=== PATIENT | male | born 1960 | race African-American/Black ===

== ENCOUNTER → 2017-05-05 | Outpatient (CLI) | payer MEDICARE, MEDICAID ==
[2017-05-05 10:59] LABS: ALANINE AMINOTRANSFERASE 90 U/L (21-72); ALBUMIN 4.4 g/dL (3.5-5.0); ALKALINE PHOSPHATASE 93 U/L (38-126); ASPARTATE AMINO TRANSFERASE 48 U/L (17-59); BILIRUBIN,DIRECT 0.3 mg/dL (0.0-0.4); BILIRUBIN,TOTAL 0.5 mg/dL (0.2-1.3); TOTAL PROTEIN 7.8 g/dL (6.3-8.2)
[2017-05-05 11:30] LABS: PROSTATE SPECIFIC ANTIGEN < 0.064 ng/mL (<4.00)
== END ==
LOC: OD 10:00
PROVIDERS: ATTEND Radiology Radiation Oncology
DX: C61 Malignant neoplasm of prostate (principal); R97.20 Elevated prostate specific antigen [PSA]; Z79.899 Other long term (current) drug therapy
CPT/HCPCS: 36415; 80076; 84153

== ENCOUNTER → 2017-09-01 | Outpatient (CLI) | payer MEDICARE, MEDICAID | LOC: OD 11:13 | PROVIDERS: ATTEND Radiology Radiation Oncology | DX: C61 Malignant neoplasm of prostate (principal); R97.20 Elevated prostate specific antigen [PSA]; Z79.899 Other long term (current) drug therapy | CPT/HCPCS: 36415; 84153 ==

== ENCOUNTER → 2017-11-23 | Outpatient (CLI) | payer MEDICARE, MEDICAID ==
[2017-11-23 12:05] LABS: APPEARANCE,URINE SLIGHTLY-CLOUDY; BILIRUBIN,URINE NEGATIVE (NEGATIVE); COLOR,URINE YELLOW; GLUCOSE, URINE NEGATIVE (NEGATIVE); KETONES,URINE NEGATIVE (NEGATIVE); LEUKOCYTE ESTERASE,URINE TRACE (NEGATIVE); NITRITE,URINE NEGATIVE (NEGATIVE); PROTEIN,URINE >=500 mg/dL (NEGATIVE); URINE SPECIFIC GRAVITY 1.031; UROBILINOGEN,URINE NEGATIVE mg/dL (<2.0)
[2017-11-23 12:09] LABS: ABSOLUTE EOSINOPHILS # (AUTO) 0.1 10^3/uL (0.0-0.6); ABSOLUTE LYMPHOCYTES (AUTO) 1.4 10^3/uL (0.5-4.7); ABSOLUTE MONOCYTES (AUTO) 0.6 10^3/uL (0.1-1.4); ABSOLUTE NEUT (AUTO) 2.5 10^3/uL (1.7-8.2); BASOPHILS % (AUTO) 0.9 % (0-2); EOSINOPHILS % (AUTO) 2.7 % (0-6); HEMATOCRIT 43.6 % (37.9-51.0); HEMOGLOBIN 14.5 g/dL (13.5-17.0); LYMPHOCYTES % (AUTO) 29.7 % (13-45); MEAN CORPUSCULAR HEMOGLOBIN 29.2 pg (27.0-33.4); MEAN CORPUSCULAR HGB CONC 33.3 g/dL (32.0-36.0); MEAN CORPUSCULAR VOLUME 88 fl (80-97); MONOCYTES % (AUTO) 12.9 % (3-13); PLATELET COUNT 235 10^3/uL (150-450); RED BLOOD COUNT 4.98 10^6/uL (4.35-5.55); RED CELL DISTRIBUTION WIDTH 14.2 % (11.5-14.0); SEGMENTED NEUTROPHILS % (AUTO) 53.8 % (42-78); TOTAL CELLS COUNTED % (AUTO) 100 %; WHITE BLOOD COUNT 4.6 10^3/uL (4.0-10.5)
[2017-11-23 12:25] LABS: ANION GAP 10 (5-19); BLOOD UREA NITROGEN 16 mg/dL (7-20); CALCIUM 10.6 mg/dL (8.4-10.2); CARBON DIOXIDE 33 mmol/L (22-30); CHLORIDE 101 mmol/L (98-107); GLUCOSE 96 mg/dL (75-110); POTASSIUM 4.5 mmol/L (3.6-5.0); SODIUM 144.4 mmol/L (137-145)
--- NOTE | 2017-11-23 12:33 | RADIOLOGY REPORT (SQ) ---
EXAM DESCRIPTION: CHEST PA/LATERAL COMPLETED DATE/TIME: 11/23/2017 12:05 pm REASON FOR STUDY: PRE OP COMPARISON: None. TECHNIQUE: Frontal and lateral radiographic views of the chest acquired. NUMBER OF VIEWS: Two view. LIMITATIONS: None. FINDINGS: LUNGS AND PLEURA: Minimal blunting left lateral costophrenic angle, likely scar or epicard ial fat. No suggestion of failure. No suspicious or acute infiltrates. MEDIASTINUM AND HILAR STRUCTURES: No masses or contour abnormalities. HEART AND VASCULAR STRUCTURES: Heart normal size. No evidence for failure. BONES: No acute findings. HARDWARE: None in the chest. OTHER: No other significant finding. IMPRESSION: No acute cardiopulmonary disease evident. TECHNICAL DOCUMENTATION: JOB ID: [id number] [employer]- All Rights Reserved
--- NOTE | 2017-11-24 08:00 | EKG REPORT ---
SEVERITY:- NORMAL ECG - SINUS RHYTHM : Confirmed by: Ceci Verdugo MD 24-Nov-2017 07:58:32
== END ==
LOC: OD 11:08
PROVIDERS: ATTEND Orthopaedic Surgery
DX: Z01.810 Encounter for preprocedural cardiovascular examination (principal); Z01.812 Encounter for preprocedural laboratory examination; Z01.818 Encounter for other preprocedural examination; E11.9 Type 2 diabetes mellitus without complications
CPT/HCPCS: 36415; 71020; 80048; 81001; 83036; 85025; 93005; 93010

== ENCOUNTER 2017-12-19 09:05 | Inpatient (IN) | payer MEDICARE, MEDICAID ==
[~2017-12-19 09:05] MED LIST: BUPIVACAINE INJ/PF LIPOSOME/PF 266 MG/20 ML SDV IJ PRN; BUPIVACAINE INJ/PF LIPOSOME/PF 266 MG/20 ML SDV ONE; CEFAZOLIN INJ 1 GM VIAL IV PRN; IBUPROFEN 800 MG in NORMAL SALINE 250 ML IV PRN; LACTATED RINGERS 1000 ML IV PRN; LANSOPRAZOLE 15 MG TAB.RAP.DR PO PRN; LIDOCAINE 0.5% INJ-PF (5 MG/ML) 50 ML SDV SUBCUT PRN; OXYCODONE HCL SR 10 MG TABLET PO PRN; THROMBIN (BOVINE) 5000 UNIT EPITAXIS KIT ONE; THROMBIN (BOVINE) TOPICAL 20000 UNIT VIAL ONE; VANCOMYCIN HCL 1,000 MG in DEXTROSE 5%-WATER 250 ML IV PRN
[2017-12-19] MEDS ORDERED: FENTANYL CITRATE INJ/PF 100 MCG/2 ML AMPUL ONE (10:11)
[2017-12-19] MEDS ORDERED: MIDAZOLAM 2 MG/2 ML INJ ONE (10:11)
[2017-12-19] MEDS ORDERED: EPHEDRINE SULFATE INJ 50 MG/1 ML AMPULE ONE (10:12)
[2017-12-19] MEDS ORDERED: PROPOFOL INJ 200 MG/20 ML VIAL IV ONE (10:12)
[2017-12-19] MEDS ORDERED: TRANEXAMIC ACID INJ/PF 1,000 MG/10 ML SDV IV ONE (10:12)
[2017-12-19] MEDS ORDERED: THROMBIN (BOVINE) TOPICAL 20000 UNIT VIAL TP ONE (11:14)
[2017-12-19] MEDS ORDERED: THROMBIN (BOVINE) 5000 UNIT EPITAXIS KIT TP ONE (11:14)
[2017-12-19] MEDS ORDERED: DIPHENHYDRAMINE HCL 50 MG/ML VIAL IV PRN ×2 (11:33→12:13)
[2017-12-19] MEDS ORDERED: FENTANYL CITRATE INJ/PF 100 MCG/2 ML AMPUL IV PRN ×3 (11:33)
[2017-12-19] MEDS ORDERED: PROMETHAZINE HCL INJ 25 MG/1 ML VIAL IV PRN (11:33)
--- NOTE | 2017-12-19 11:55 | Operative Report ---
Operative Report DATE OF SURGERY: 12/19/17 PREOPERATIVE DIAGNOSIS: Avascular necrosis right hip OPERATION: Right hip arthroplasty SURGEON: NICHOLE VARELA 1ST FIELD REPORTER: ARMIN LINARES ANESTHESIA: Spinal TISSUE REMOVED OR ALTERED: Bone to pathology ESTIMATED BLOOD LOSS: 100 PROCEDURE: Implants used: Femur: Lin Accolade 2 size 4 stem Acetabular shell: 54 mm hemispherical shell Liner: 36 mm flat cross-link polyethylene liner Head: 36 mm chrome cobalt head -5 neck The patient is placed in a left lateral decubitus position on the operating table. The right lower extremity and hindquarter is prepped and draped in a sterile fashion. A curvilinear incision was made over the greater trochanter a posterior approach the hip was taken. The femoral head is dislocated and the femoral neck transected using an oscillating saw. Attention was next turned to the acetabulum. Soft tissues cleared off the acetabulum using electrocautery. The acetabulum was then prepared using a series of hemispherical reamers until a 53 millimeters reamer is seated. Subsequently a 54 millimeters Lin titanium hemispherical shell is impacted into position and secured with one screw. A standard flat 36 millimeters cross- link liner is impacted into the shell. Attention was next turned to the femur. Access is gained to the femoral canal using a box osteotome to the piriformis fossa. The femur is then prepared using a series of broaches until a number 4 broach is seated. A trial reduction was now performed using a 36 millimeters head with and minus 5 neck. Preoperative leg length was recreated and is excellent anterior posterior stability. A decision was made to proceed with the above construct. All trial implants were removed. The wound is irrigated with pulsed lavage. A number 4 stem is impacted into the femoral canal. A trial reduction was again performed with a 36 mm head and a -5 neck. Findings as previously. The hip was dislocated one last time and the final chrome-cobalt head is impacted onto the trunnion. The hip was reduced. Wound is copiously irrigated with pulsed lavage. Sent closed in layers using interrupted Vicryl followed by javid. A sterile dressing is applied and the patient's returned to recovery room in satisfactory patient.
[2017-12-19] MEDS ORDERED: D3 PO PRN (12:12)
[2017-12-19] MEDS ORDERED: [UNRECOGNIZED DRUG - OTHER] PO PRN (12:12)
[2017-12-19] MEDS ORDERED: B12 PO PRN (12:12)
[2017-12-19] MEDS ORDERED: ONDANSETRON HCL INJ/PF 4 MG/2 ML SDV IV PRN (12:13)
[2017-12-19] MEDS ORDERED: ACETAMINOPHEN 325 MG TABLET PO PRN (12:13)
[2017-12-19] MEDS ORDERED: RINGERS SOLUTION,LACTATED 1,000 ML IV PRN (12:13)
[2017-12-19] MEDS ORDERED: ZOLPIDEM TARTRATE 5 MG TABLET PO PRN (12:13)
[2017-12-19] MEDS ORDERED: MORPHINE SULFATE 10 MG/ML INJ IV PRN ×2 (12:13)
[2017-12-19] MEDS ORDERED: MORPHINE SULFATE 10 MG/ML INJ IM PRN (12:13)
[2017-12-19] MEDS ORDERED: MAG HYDROX/AL HYDROX/SIMETH SUSP 30 ML UDCUP PO PRN (12:13)
[2017-12-19] MEDS ORDERED: ONDANSETRON 4 MG TAB.RAPDIS PO PRN (12:13)
--- NOTE | 2017-12-19 12:55 | RADIOLOGY REPORT (SQ) ---
EXAM DESCRIPTION: PELVIS AP COMPLETED DATE/TIME: 12/19/2017 12:35 pm REASON FOR STUDY: Post Op Long Cassette in PACU M16.11 UNILATERAL PRIMARY OSTEOARTHRITIS, RIGHT HI P COMPARISON: None. NUMBER OF VIEWS: One view TECHNIQUE: Digital radiographic images of the pelvis post-procedure LIMITATIONS: None. FINDINGS: BONES: No worrisome or unexpected findings post-procedure. DEVICE: Uncemented Right hip replacement with acetabular component anchored with a single screw. SOFT TISSUES: No worrisome findings. Expected postoperative soft tissue changes. IMPRESSION: SATISFACTORY POSTOPERATIVE PELVIS. TECHNICAL DOCUMENTATION: JOB ID: [id number] [employer]- All Rights Reserved
[2017-12-19] MEDS ORDERED: ONDANSETRON HCL INJ/PF 4 MG/2 ML SDV ONE (14:08)
[2017-12-19] MEDS ORDERED: PHENYLEPHRINE HCL INJ/PF 10 MG/1 ML SDV ONE (14:08)
[2017-12-19] MEDS ORDERED: LIDOCAINE 2% INJ-PF (20 MG/ML) 2 ML AMPUL ONE (14:08)
[2017-12-19] MEDS: ALBUTEROL SULFATE HFA (90 MCG/PUFF) 8 GM MDI (1 MDI/ER DISP) IH PRN ×2 (15:49→17:52)
[2017-12-19] MEDS: GABAPENTIN 300 MG CAPSULE PO SCH ×2 (15:59→17:51)
[2017-12-19] MEDS ORDERED: VENLAFAXINE HCL 75 MG TABLET PO SCH (18:00)
[2017-12-19] MEDS ORDERED: ACETAMINOPHEN 100 ML IV ONE (18:13)
[2017-12-19] MEDS ORDERED: ALBUTEROL SULFATE HFA (90 MCG/PUFF) 8 GM MDI (1 MDI/ER DISP) IH PRN (19:37)
[2017-12-19] MEDS ORDERED: ALBUTEROL SULFATE HFA (90 MCG/PUFF) 200 PUFF/8.5 GM MDI IH PRN (19:39)
[2017-12-19] MEDS: OXYCODONE HCL IR 5 MG TABLET PO PRN (20:56)
[2017-12-19] MEDS: OXYCODONE HCL SR 10 MG TABLET PO SCH (20:57)
[2017-12-19] MEDS ORDERED: RIVAROXABAN 10 MG TABLET PO SCH (22:00)
[2017-12-19] MEDS: MORPHINE SULFATE 10 MG/ML INJ IV PRN (22:01)
[2017-12-20] MEDS ORDERED: VANCOMYCIN HCL 1,000 MG in DEXTROSE 5%-WATER 250 ML IV ONE (00:13)
[2017-12-20] MEDS: MORPHINE SULFATE 10 MG/ML INJ IV PRN ×2 (00:21→04:07)
[2017-12-20 05:01] LABS: HEMATOCRIT 39.7 % (37.9-51.0); HEMOGLOBIN 13.1 g/dL (13.5-17.0); MEAN CORPUSCULAR HGB CONC 32.9 g/dL (32.0-36.0); MEAN CORPUSCULAR VOLUME 88 fl (80-97); PLATELET COUNT 179 10^3/uL (150-450); RED CELL DISTRIBUTION WIDTH 15.1 % (11.5-14.0); WHITE BLOOD COUNT 6.6 10^3/uL (4.0-10.5)
[2017-12-20 05:15] LABS: ANION GAP 8 (5-19); BLOOD UREA NITROGEN 11 mg/dL (7-20); CALCIUM 9.8 mg/dL (8.4-10.2); CARBON DIOXIDE 31 mmol/L (22-30); CHLORIDE 100 mmol/L (98-107); GLUCOSE 116 mg/dL (75-110); POTASSIUM 4.2 mmol/L (3.6-5.0); SODIUM 139.2 mmol/L (137-145)
[2017-12-20] MEDS: OXYCODONE HCL IR 5 MG TABLET PO PRN (05:48)
[2017-12-20] MEDS ORDERED: LANSOPRAZOLE 30 MG TAB.RAP.DR PO SCH (06:00)
--- NOTE | 2017-12-20 06:41 | PDOC DISCHARGE SUMMARY ---
General - Admit/Disc Date/PCP Admission Date/Primary Care Provider: 12/19/17 09:05 Discharge Date: 12/20/17 - Discharge Diagnosis (1) Arthritis of right hip Is this a current diagnosis for this admission?: Yes - Additional Information Resuscitation Status: Full Code Discharge Diet: As Tolerated, Regular Discharge Activity: No Driving, No tub bath, Walk Frequently Home Medications: Albuterol Sulfate [Proair HFA] 2 puff IH Q4HP PRN 11/08/16 Aspirin [Aspirin 81 mg Chewable Tablet] 81 mg PO DAILY 11/08/16 Gabapentin 600 mg PO Q12 11/08/16 Metformin HCl 500 mg PO BIDBS 11/08/16 Simvastatin 40 mg PO QHS 11/08/16 History of Present Illness History of Present Illness: BERE MICHAELS is a 57 year old male with progressive pain and decreased mobility as result of right hip arthritis. He was admitted for elective total right hip arthroplasty. Hospital Course Hospital Course: 57-year-old -[place] male admitted through the OR for elective total right hip arthroplasty. He was returned to the postanesthesia care unit in satisfactory condition. He was then taken to the surgical floor where he was seen by nursing staff and Dr. Ruano for pain control as well as physical therapy for weightbearing as tolerated. He made progress with physical therapy ambulating 250 feet postop day 0. He will be discharged home today with home health nursing, home physical therapy, wheeled walker, bedside commode. Physical Exam Vital Signs: Temp Pulse Resp BP Pulse Ox 37.5 C 82 16 109/56 L 97 12/20/17 00:00 12/20/17 00:00 12/20/17 00:00 12/20/17 00:00 12/20/17 00:00 Intake & Output 12/18/17 12/19/17 12/20/17 06:59 06:59 06:59 Intake Total 1770 Output Total 1025 Balance 745 General appearance: PRESENT: no acute distress, well-developed, well-nourished Head exam: PRESENT: atraumatic, normocephalic Respiratory exam: PRESENT: unlabored Pulses: PRESENT: normal dorsalis pedis pul, +2 pedal pulses bilateral Vascular exam: PRESENT: normal capillary refill Additional comments: Patient sitting upright in a chair at the bedside with bilateral lower legs extended on retractable ottoman. His OpSite dressing is clean dry and intact and he is minimally tender to palpation. His dressing is left in place. He has brisk capillary refill to bilateral lower extremities and minimal pedal edema is likely sequela and his distal neurovascular exam is intact. Musculoskeletal exam: PRESENT: ambulatory Additional comments: Patient made great progress with physical therapy ambulating 250 feet independently on postop day 0. He will continue to work with physical therapy today and with home physical therapy once he is discharged home. Neurological exam: PRESENT: alert, awake, oriented to person, oriented to place , oriented to time, oriented to situation, CN II-XII grossly intact. ABSENT: motor sensory deficit Psychiatric exam: PRESENT: appropriate affect, normal mood. ABSENT: homicidal ideation, suicidal ideation Skin exam: PRESENT: dry, intact, warm. ABSENT: cyanosis, rash Results Laboratory Results: 12/20/17 04:32 12/20/17 04:32 12/19/17 12/19/17 12/20/17 09:29 09:29 04:32 WBC 6.6 RBC 4.50 Hgb 13.1 L Hct 39.7 MCV 88 MCH 29.0 MCHC 32.9 RDW 15.1 H Plt Count 179 Sodium Potassium Chloride Carbon Dioxide Anion Gap BUN Creatinine Est GFR ( Amer) Est GFR (Non-Af Amer) Glucose 109 Calcium Blood Type A POSITIVE Antibody Screen NEGATIVE 12/20/17 04:32 WBC RBC Hgb Hct MCV MCH MCHC RDW Plt Count Sodium 139.2 Potassium 4.2 Chloride 100 Carbon Dioxide 31 H Anion Gap 8 BUN 11 Creatinine 1.06 Est GFR ( Amer) > 60 Est GFR (Non-Af Amer) > 60 Glucose 116 H Calcium 9.8 Blood Type Antibody Screen Impressions: Pelvis X-Ray 12/19/17 12:15 IMPRESSION: SATISFACTORY POSTOPERATIVE PELVIS. Plan Discharge Plan: 57-year-old -[place] male 1 day status post total right hip arthroplasty without complications. Patient made great progress with physical therapy and ambulated 250 feet on postop day 0. Patient will be discharged to home today with home health nursing, wheeled walker, bedside commode and home PT. He will continue to work to improve strength range of motion of right lower extremity with home PT. He will follow-up with Dr. Ruano and Graham CURRIE at [facility] surgery 2 weeks postoperatively for reevaluation and staple removal. Time Spent: Less than 30 Minutes
[2017-12-20] MEDS ORDERED: METFORMIN HCL 500 MG TABLET PO SCH ×2 (08:00→10:00)
[2017-12-20] MEDS: OXYCODONE HCL SR 10 MG TABLET PO SCH (09:03)
[2017-12-20] MEDS ORDERED: SIMVASTATIN 40 MG TABLET PO SCH ×2 (10:00→22:00)
[2017-12-20] MEDS ORDERED: GABAPENTIN 300 MG CAPSULE PO SCH (10:00)
[2017-12-20] MEDS ORDERED: TIOTROPIUM BROMIDE DPI 5 CAP/KIT (18 MCG/CAP) IH SCH (10:00)
[2017-12-20 10:40] VITALS: BP 109/56
== END 2017-12-20 12:01 | disposition home health service (06) | DRG 470 ==
LOC: INOR 09:05 → 4N 13:45
PROVIDERS: ADMIT Orthopaedic Surgery; ATTEND Orthopaedic Surgery
PROC: 0SR902A Replacement of Right Hip Joint with Metal on Polyethylene Synthetic Substitute, Uncemented, Open Approach (ICD-10-PCS; principal; 2017-12-19 11:15)
DX: M87.051 Idiopathic aseptic necrosis of right femur (principal); J45.909 Unspecified asthma, uncomplicated; E11.9 Type 2 diabetes mellitus without complications; Z79.899 Other long term (current) drug therapy
CPT/HCPCS: 01214; 36415; 72170; 80048; 82947; 85027; 86850; 86900; 86901; 88304; 88311; 88342; 94799; C1713; C9290; G8978-GP; G8979-GP; G8987-GO; G8988-GO; J0131; J0690; J1741; J2250; J2270; J2370; J2405; J2704; J3010; J3370; J3490; J7050; J7060

== ENCOUNTER → 2018-02-07 | Outpatient (CLI) | payer MEDICARE, MEDICAID ==
[2018-02-07 10:56] LABS: ALANINE AMINOTRANSFERASE 51 U/L (21-72); ALBUMIN 4.4 g/dL (3.5-5.0); ALKALINE PHOSPHATASE 86 U/L (38-126); ASPARTATE AMINO TRANSFERASE 35 U/L (17-59); BILIRUBIN,DIRECT 0.4 mg/dL (0.0-0.4); BILIRUBIN,TOTAL 0.4 mg/dL (0.2-1.3); TOTAL PROTEIN 7.5 g/dL (6.3-8.2)
== END ==
LOC: OD 09:38
PROVIDERS: ATTEND Radiology Radiation Oncology
DX: C61 Malignant neoplasm of prostate (principal); R97.20 Elevated prostate specific antigen [PSA]; Z79.899 Other long term (current) drug therapy
CPT/HCPCS: 36415; 80076; 84153

== ENCOUNTER → 2018-06-12 | Outpatient (CLI) | payer MEDICARE, MEDICAID | LOC: OD 10:49 | PROVIDERS: ATTEND Radiology Radiation Oncology | DX: C61 Malignant neoplasm of prostate (principal); R97.20 Elevated prostate specific antigen [PSA] | CPT/HCPCS: 36415; 84153 ==

== ENCOUNTER → 2018-12-15 | Outpatient (CLI) | payer MEDICARE, MEDICAID ==
[2018-12-15 11:36] LABS: ALANINE AMINOTRANSFERASE 62 U/L (21-72); ALBUMIN 4.3 g/dL (3.5-5.0); ALKALINE PHOSPHATASE 83 U/L (38-126); ASPARTATE AMINO TRANSFERASE 45 U/L (17-59); BILIRUBIN,DIRECT 0.1 mg/dL (0.0-0.4); BILIRUBIN,TOTAL 0.5 mg/dL (0.2-1.3); TOTAL PROTEIN 7.1 g/dL (6.3-8.2)
== END ==
LOC: OD 10:38
PROVIDERS: ATTEND Radiology Radiation Oncology
DX: C61 Malignant neoplasm of prostate (principal); R97.20 Elevated prostate specific antigen [PSA]; Z79.899 Other long term (current) drug therapy
CPT/HCPCS: 36415; 80076; 84153

== ENCOUNTER → 2019-06-20 | Outpatient (CLI) | payer MEDICARE, MEDICAID | LOC: OD 12:35 | PROVIDERS: ATTEND Radiology Radiation Oncology | DX: C61 Malignant neoplasm of prostate (principal) | CPT/HCPCS: 36415; 84153 ==

== ENCOUNTER → 2019-10-04 | Outpatient (CLI) | payer MEDICARE, MEDICAID ==
[2019-10-04 15:05] LABS: ABSOLUTE EOSINOPHILS # (AUTO) 0.2 10^3/uL (0.0-0.6); ABSOLUTE LYMPHOCYTES (AUTO) 1.6 10^3/uL (0.5-4.7); ABSOLUTE MONOCYTES (AUTO) 0.5 10^3/uL (0.1-1.4); ABSOLUTE NEUT (AUTO) 2.7 10^3/uL (1.7-8.2); BASOPHILS % (AUTO) 0.8 % (0-2); EOSINOPHILS % (AUTO) 3.1 % (0-6); HEMATOCRIT 39.3 % (37.9-51.0); HEMOGLOBIN 13.1 g/dL (13.5-17.0); LYMPHOCYTES % (AUTO) 32.9 % (13-45); MEAN CORPUSCULAR HEMOGLOBIN 29.7 pg (27.0-33.4); MEAN CORPUSCULAR HGB CONC 33.4 g/dL (32.0-36.0); MEAN CORPUSCULAR VOLUME 89 fl (80-97); MONOCYTES % (AUTO) 9.2 % (3-13); PLATELET COUNT 229 10^3/uL (150-450); RED BLOOD COUNT 4.42 10^6/uL (4.35-5.55); TOTAL CELLS COUNTED % (AUTO) 100 %; WHITE BLOOD COUNT 4.9 10^3/uL (4.0-10.5)
[2019-10-04 15:08] LABS: APPEARANCE,URINE CLEAR; BILIRUBIN,URINE NEGATIVE (NEGATIVE); COLOR,URINE YELLOW; GLUCOSE, URINE NEGATIVE (NEGATIVE); KETONES,URINE NEGATIVE (NEGATIVE); LEUKOCYTE ESTERASE,URINE NEGATIVE (NEGATIVE); NITRITE,URINE NEGATIVE (NEGATIVE); PROTEIN,URINE 100 mg/dL (NEGATIVE); URINE SPECIFIC GRAVITY 1.023; UROBILINOGEN,URINE NEGATIVE mg/dL (<2.0)
[2019-10-04 15:31] LABS: ANION GAP 12 (5-19); BLOOD UREA NITROGEN 19 mg/dL (7-20); CALCIUM 10.3 mg/dL (8.4-10.2); CARBON DIOXIDE 28 mmol/L (22-30); CHLORIDE 104 mmol/L (98-107); GLUCOSE 79 mg/dL (75-110); POTASSIUM 4.5 mmol/L (3.6-5.0)
--- NOTE | 2019-10-04 15:54 | RADIOLOGY REPORT (SQ) ---
EXAM DESCRIPTION: CHEST PA/LATERAL COMPLETED DATE/TIME: 10/04/2019 3:22 pm REASON FOR STUDY: PRE-OP COMPARISON: 11/23/2017 EXAM PARAMETERS: NUMBER OF VIEWS: two views TECHNIQUE: Digital Frontal and Lateral radiographic views of the chest acquired. RADIATION DOSE: NA LIMITATIONS: none FINDINGS: LUNGS AND PLEURA: Chronic scarring and blunting of the left costophrenic angle. No acute findings. MEDIASTINUM AND HILAR STRUCTURES: No masses or contour abnormalities. HEART AND VASCULAR STRUCTURES: Heart normal size. No evidence for failure. BONES: No acute findings. HARDWARE: None in the chest. OTHER: No other significant finding. IMPRESSION: No acute findings in the chest. TECHNICAL DOCUMENTATION: JOB ID: [id number] [employer]- All Rights Reserved Reading location - IP/workstation name: [email or web address]
--- NOTE | 2019-10-04 22:46 | EKG REPORT ---
SEVERITY:- NORMAL ECG - SINUS RHYTHM : Confirmed by: Glory Molina 04-Oct-2019 22:45:33
== END ==
LOC: OD 14:07
PROVIDERS: ATTEND Orthopaedic Surgery
DX: M16.2 Bilateral osteoarthritis resulting from hip dysplasia (principal); Z01.810 Encounter for preprocedural cardiovascular examination; Z01.811 Encounter for preprocedural respiratory examination; Z01.812 Encounter for preprocedural laboratory examination; M16.12 Unilateral primary osteoarthritis, left hip; E11.9 Type 2 diabetes mellitus without complications
CPT/HCPCS: 36415; 71046; 80048; 81001; 83036; 85025; 93005; 93010

== ENCOUNTER 2019-10-29 05:19 | Inpatient (IN) | payer OTHER, MEDICARE, MEDICAID ==
[~2019-10-29 05:19] MED LIST changes: -BUPIVACAINE INJ/PF LIPOSOME/PF 266 MG/20 ML SDV IJ PRN; +BUPIVACAINE INJ/PF LIPOSOME/PF 266 MG/20 ML SDV INJ PRN; -BUPIVACAINE INJ/PF LIPOSOME/PF 266 MG/20 ML SDV ONE; -LANSOPRAZOLE 15 MG TAB.RAP.DR PO PRN; +PANTOPRAZOLE SODIUM 20 MG TABLET.DR PO PRN; -THROMBIN (BOVINE) 5000 UNIT EPITAXIS KIT ONE; -THROMBIN (BOVINE) TOPICAL 20000 UNIT VIAL ONE
[2019-10-29] MEDS ORDERED: CEFAZOLIN INJ 1 GM VIAL ONE (06:15)
[2019-10-29] MEDS ORDERED: OXYCODONE HCL SR 10 MG TABLET PO ONE (06:15)
[2019-10-29] MEDS ORDERED: PANTOPRAZOLE SODIUM 20 MG TABLET.DR PO ONE (06:15)
[2019-10-29] MEDS ORDERED: FENTANYL CITRATE INJ/PF 100 MCG/2 ML AMPUL ONE (07:05)
[2019-10-29] MEDS ORDERED: MIDAZOLAM 2 MG/2 ML INJ ONE (07:06)
[2019-10-29] MEDS ORDERED: PROPOFOL INJ 200 MG/20 ML VIAL IV ONE (07:06)
[2019-10-29] MEDS ORDERED: LIDOCAINE 2% INJ (20 MG/ML) 20 ML MDV ONE (07:07)
[2019-10-29] MEDS ORDERED: KETOROLAC TROMETHAMINE 60 MG/2 ML SDV ONE (07:21)
[2019-10-29] MEDS ORDERED: TRANEXAMIC ACID INJ/PF 1,000 MG/10 ML SDV ONE ×2 (07:21→09:21)
[2019-10-29] MEDS ORDERED: ONDANSETRON HCL INJ/PF 4 MG/2 ML SDV ONE (07:21)
[2019-10-29] MEDS ORDERED: FENTANYL CITRATE INJ/PF 100 MCG/2 ML AMPUL IV PRN ×3 (07:57)
[2019-10-29] MEDS ORDERED: ONDANSETRON HCL INJ/PF 4 MG/2 ML SDV IV PRN ×2 (07:57→09:54)
[2019-10-29] MEDS ORDERED: DIPHENHYDRAMINE HCL 50 MG/ML VIAL IV PRN ×2 (07:57→09:54)
[2019-10-29] MEDS ORDERED: OXYCODONE-ACETAMINOPHEN 5-325 MG TABLET PO PRN ×2 (07:57)
[2019-10-29] MEDS ORDERED: MEPERIDINE HCL/PF INJ 25 MG/1 ML DISP.SYRIN IV PRN (07:57)
[2019-10-29] MEDS ORDERED: MORPHINE SULFATE 10 MG/ML INJ IV PRN (07:57)
--- NOTE | 2019-10-29 09:53 | Operative Report ---
Operative Report DATE OF SURGERY: 10/29/19 PREOPERATIVE DIAGNOSIS: Avascular necrosis left hip OPERATION: Left hip arthroplasty SURGEON: NICHOLE VARELA ANESTHESIA: Spinal TISSUE REMOVED OR ALTERED: Femoral head to pathology ESTIMATED BLOOD LOSS: 75 PROCEDURE: Implants used: Femur: Lin Accolade 2 stem, size 3 Acetabular shell: 54 millimeters hemispherical shell Liner: 36 mm flat cross-link polyethylene liner Head: 36 mm chrome cobalt head +5 neck The patient is placed in a right lateral decubitus position on the operating table. The left lower extremity and hindquarter is prepped and draped in a sterile fashion. A curvilinear incision was made over the greater trochanter a posterior approach the hip was taken. The femoral head is dislocated and the femoral neck transected using an oscillating saw. Attention was next turned to the acetabulum. Soft tissues cleared off the acetabulum using electrocautery. The acetabulum was then prepared using a seri es of hemispherical reamers until a 54 millimeters reamer is seated. Subsequently a 54 millimeters Lin titanium hemispherical shell is impacted into position. A standard flat 36 millimeters cross-link liner is impacted into the shell. Attention was next turned to the femur. Access is gained to the femoral canal using a box osteotome to the piriformis fossa. The femur is then prepared using a series of broaches until a number 3 broach is seated. A trial reduction was now performed using a 3 millimeters head with +5 neck. Preoperative leg length was recreated and is excellent anterior posterior stability. A decision was made to proceed with the above construct. All trial implants were removed. The wound is irrigated with pulsed lavage. A number 3 stem is impacted into the femoral canal. A trial reduction was again performed with a 36 mm head and a +5 neck. Findings as previously. The hip was dislocated one last time and the final chrome-cobalt head is impacted onto the trunnion. The hip was reduced. Wound is copiously irrigated with pulsed lavage. Sent closed in layers using interrupted Vicryl followed by javid. A sterile dressing is applied and the patient's returned to recovery room in satisfactory patient.
[2019-10-29] MEDS ORDERED: ONDANSETRON 4 MG TAB.RAPDIS PO PRN (09:54)
[2019-10-29] MEDS ORDERED: RINGERS SOLUTION,LACTATED 1,000 ML IV PRN (09:54)
[2019-10-29] MEDS ORDERED: MAG HYDROX/AL HYDROX/SIMETH SUSP 30 ML UDCUP PO PRN (09:54)
[2019-10-29] MEDS ORDERED: ZOLPIDEM TARTRATE 5 MG TABLET PO PRN (09:54)
[2019-10-29] MEDS ORDERED: ACETAMINOPHEN 325 MG TABLET PO PRN (09:54)
[2019-10-29] MEDS ORDERED: TRANEXAMIC ACID INJ/PF 1,000 MG/10 ML SDV IV ONE (10:00)
--- NOTE | 2019-10-29 10:49 | RADIOLOGY REPORT (SQ) ---
EXAM DESCRIPTION: HIP LEFT AP/LATERAL COMPLETED DATE/TIME: 10/29/2019 9:51 am REASON FOR STUDY: post op M16.12 UNILATERAL PRIMARY OSTEOARTHRITIS, LEFT HIP COMPARISON: None. NUMBER OF VIEWS: Two views. TECHNIQUE: AP pelvis and additional frog-leg view of the left hip. LIMITATIONS: None. FINDINGS: MINERALIZATION: Normal. LEFT HIP: No fracture or dislocation. No worrisome bone lesions. Total hip arthroplasty. No eviden ce of complication. RIGHT HIP: No fracture or dislocation. No worrisome bone lesions. Hip arthroplasty without evidence of complication. PUBIS AND ISCHIUM: No fracture. SACRUM: No fracture or dislocation. No worrisome bone lesions. LOWER LUMBAR SPINE: No fracture or dislocation. No worrisome bone lesions. Mild degenerative change. SOFT TISSUES: Subcutaneous gas about the left hip, presumably postoperative OTHER: No other significant finding. IMPRESSION: Bilateral hip arthroplasties without evidence of fracture or hardware complication. TECHNICAL DOCUMENTATION: JOB ID: [id number] [employer]- All Rights Reserved Reading location - IP/workstation name: [email or web address]
[2019-10-29] MEDS ORDERED: GLUCAGON,HUMAN RECOMB 1 MG INJ IM PRN (11:00)
[2019-10-29] MEDS ORDERED: DEXTROSE 40% GEL 15 GM TUBE PO PRN (11:00)
[2019-10-29] MEDS ORDERED: DEXTROSE 40% GEL 15 GM TUBE X 2 PO PRN (11:00)
[2019-10-29] MEDS ORDERED: DEXTROSE 50%-WATER SYRINGE 12.5 GM/25 ML DOSE IV PRN (11:00)
[2019-10-29] MEDS ORDERED: DEXTROSE 50%-WATER SYRINGE 25 GM/50 ML DOSE IV PRN (11:00)
[2019-10-29] MEDS: GABAPENTIN 300 MG CAPSULE PO SCH ×2 (12:31→21:15)
[2019-10-29] MEDS: OXYCODONE HCL IR 5 MG TABLET PO PRN ×2 (12:36→18:25)
[2019-10-29] MEDS: INSULIN LISPRO 100 UNIT/ML 3 ML VIAL SUBCUT SCH ×3 (16:57→22:22)
[2019-10-29] MEDS: IBUPROFEN 800 MG in NORMAL SALINE 250 ML IV SCH (17:06)
[2019-10-29] MEDS: METFORMIN HCL 500 MG TABLET PO SCH (17:06)
[2019-10-29] MEDS: SENNOSIDES/DOCUSATE 8.6-50 MG 1 EACH TABLET PO SCH (17:06)
[2019-10-29] MEDS: OXYCODONE HCL SR 10 MG TABLET PO SCH (17:08)
[2019-10-29] MEDS ORDERED: VANCOMYCIN HCL 1,000 MG in DEXTROSE 5%-WATER 250 ML IV ONE (21:54)
[2019-10-29] MEDS ORDERED: SIMVASTATIN 40 MG TABLET PO SCH (22:00)
[2019-10-29] MEDS ORDERED: OXYCODONE HCL SR 10 MG TABLET PO SCH (22:00)
[2019-10-30] MEDS: IBUPROFEN 800 MG in NORMAL SALINE 250 ML IV SCH ×2 (02:15→09:50)
[2019-10-30] MEDS: OXYCODONE HCL SR 10 MG TABLET PO SCH (05:23)
[2019-10-30] MEDS ORDERED: PANTOPRAZOLE SODIUM 40 MG TABLET.DR PO SCH (06:00)
[2019-10-30 06:05] LABS: HEMATOCRIT 39.4 % (37.9-51.0); HEMOGLOBIN 13.1 g/dL (13.5-17.0); MEAN CORPUSCULAR HEMOGLOBIN 30.1 pg (27.0-33.4); MEAN CORPUSCULAR HGB CONC 33.4 g/dL (32.0-36.0); MEAN CORPUSCULAR VOLUME 90 fl (80-97); PLATELET COUNT 194 10^3/uL (150-450); RED BLOOD COUNT 4.36 10^6/uL (4.35-5.55); RED CELL DISTRIBUTION WIDTH 14.5 % (11.5-14.0); WHITE BLOOD COUNT 7.6 10^3/uL (4.0-10.5)
[2019-10-30 06:34] LABS: ANION GAP 7 (5-19); BLOOD UREA NITROGEN 15 mg/dL (7-20); CALCIUM 9.4 mg/dL (8.4-10.2); CARBON DIOXIDE 28 mmol/L (22-30); CHLORIDE 103 mmol/L (98-107); GLUCOSE 108 mg/dL (75-110); POTASSIUM 4.3 mmol/L (3.6-5.0)
--- NOTE | 2019-10-30 07:17 | PDOC DISCHARGE SUMMARY ---
Impression - Admit/DC Date/PCP Admission Date/Primary Care Provider: 10/29/19 05:19 LEIGHTON BASILIO, DO Discharge Date: 10/30/19 - Additional Information Resuscitation Status: Full Code Discharge Diet: Regular Discharge Activity: Balance Activity w/Rest, No tub bath Referrals: NICHOLE VARELA MD [ACTIVE STAFF] - 11/13/19 8:15 am Home Medications: Albuterol Sulfate [Proair HFA] 2 puff IH Q4HP PRN 11/08/16 Gabapentin 600 mg PO Q12 11/08/16 Metformin HCl 500 mg PO BIDBS 11/08/16 Simvastatin 40 mg PO QHS 11/08/16 Ibuprofen [Ibu] 800 mg PO BIDP PRN 10/23/19 Tramadol HCl [Ultram] 50 mg PO BIDP PRN 10/29/19 History of Present Illiness History of Present Illness: BERE MICHAELS is a 59 year old male 59-year-old black male with progressive left hip pain and functional disability second to avascular necrosis. Patient is admitted for an elective left hip arthroplasty. Hospital Course Hospital Course: Patient is admitted through the operating room where he undergoes unconjugated left hip arthroplasty. Is returned to floor in satisfactory condition. He makes excellent progress with physical therapy on a weightbearing as tolerated basis. Physical Exam Vital Signs: Temp Pulse Resp BP Pulse Ox 37.0 C 84 18 129/75 H 100 10/29/19 20:34 10/29/19 20:34 10/29/19 20:34 10/29/19 20:34 10/29/19 20:34 Intake & Output 10/29/19 10/30/19 10/31/19 06:59 06:59 06:59 Intake Total 2065 Output Total 3025 Balance -960 Weight 92 kg 96.5 kg General appearance: PRESENT: no acute distress Head exam: PRESENT: normocephalic Respiratory exam: PRESENT: unlabored Cardiovascular exam: PRESENT: RRR Pulses: PRESENT: +1 pedal pulses bilateral Vascular exam: PRESENT: normal capillary refill GI/Abdominal exam: PRESENT: soft Rectal exam: PRESENT: deferred Musculoskeletal exam: PRESENT: other - Left hip dressing clean dry and intact. Leg lengths are equal. Distal neurovascular examination is intact. Neurological exam: PRESENT: alert, awake, oriented to person, oriented to place, oriented to time, oriented to situation. ABSENT: motor sensory deficit Psychiatric exam: PRESENT: appropriate affect, normal mood. ABSENT: homicidal ideation, suicidal ideation Skin exam: PRESENT: dry, intact, warm. ABSENT: cyanosis, rash Results Laboratory Results: WBC 7.6 10^3/uL (4.0-10.5) 10/30/19 05:18 RBC 4.36 10^6/uL (4.35-5.55) 10/30/19 05:18 Hgb 13.1 g/dL (13.5-17.0) L 10/30/19 05:18 Hct 39.4 % (37.9-51.0) 10/30/19 05:18 MCV 90 fl (80-97) 10/30/19 05:18 MCH 30.1 pg (27.0-33.4) 10/30/19 05:18 MCHC 33.4 g/dL (32.0-36.0) 10/30/19 05:18 RDW 14.5 % (11.5-14.0) H 10/30/19 05:18 Plt Count 194 10^3/uL (150-450) 10/30/19 05:18 Sodium 137.6 mmol/L (137-145) 10/30/19 05:18 Potassium 4.3 mmol/L (3.6-5.0) 10/30/19 05:18 Chloride 103 mmol/L (98-107) 10/30/19 05:18 Carbon Dioxide 28 mmol/L (22-30) 10/30/19 05:18 Anion Gap 7 (5-19) 10/30/19 05:18 BUN 15 mg/dL (7-20) 10/30/19 05:18 Creatinine 1.12 mg/dL (0.52-1.25) 10/30/19 05:18 Est GFR ( Amer) > 60 (>60) 10/30/19 05:18 Est GFR (MDRD) Non-Af > 60 (>60) 10/30/19 05:18 Glucose 108 mg/dL (75-110) 10/30/19 05:18 POC Glucose 101 mg/dL (70-110) 10/30/19 06:04 Calcium 9.4 mg/dL (8.4-10.2) 12/03/19 05:18 Blood Type A POSITIVE 10/29/19 06:19 Antibody Screen NEGATIVE 10/29/19 06:19 Impressions: Hip X-Ray 10/29/19 00:00 IMPRESSION: Bilateral hip arthroplasties without evidence of fracture or hardware complication. Plan Plan of Treatment: Patient to be discharged home on a weightbearing as tolerated basis with home health services and DME. Follow-up with Dr. Bindu Banegas [place] for surgery in 2 weeks for wound check. Stroke Is this a Stroke Patient?: No Stroke Pt being discharged on Anti-thrombolytic therapy?: Yes Acute Heart Failure - Is this a Heart Failure Patient?: No
[2019-10-30] MEDS: INSULIN LISPRO 100 UNIT/ML 3 ML VIAL SUBCUT SCH ×2 (07:36→10:56)
[2019-10-30] MEDS: OXYCODONE HCL IR 5 MG TABLET PO PRN (07:42)
[2019-10-30] MEDS: METFORMIN HCL 500 MG TABLET PO SCH (07:42)
[2019-10-30 08:32] VITALS: BP 108/67
[2019-10-30] MEDS: SENNOSIDES/DOCUSATE 8.6-50 MG 1 EACH TABLET PO SCH (09:50)
[2019-10-30] MEDS: GABAPENTIN 300 MG CAPSULE PO SCH (09:51)
[2019-10-30] MEDS ORDERED: PRENATAL VITAMIN W DHA CAPSULE PO SCH (10:00)
== END 2019-10-30 11:23 | disposition home health service (06) | DRG 470 ==
LOC: INOR 05:19 → 4S 10:54
PROVIDERS: ADMIT Orthopaedic Surgery; ATTEND Orthopaedic Surgery
PROC: 0SRB02Z Replacement of Left Hip Joint with Metal on Polyethylene Synthetic Substitute, Open Approach (ICD-10-PCS; principal; 2019-10-29 07:30)
DX: M87.052 Idiopathic aseptic necrosis of left femur (principal); M16.12 Unilateral primary osteoarthritis, left hip; E11.9 Type 2 diabetes mellitus without complications; Z96.641 Presence of right artificial hip joint; J45.909 Unspecified asthma, uncomplicated; Z79.84 Long term (current) use of oral hypoglycemic drugs
CPT/HCPCS: 01214; 36415; 80048; 82962; 85027; 86850; 86900; 86901; 88304; 88311; 94799; C1776; J0690; J1741; J1885; J2250; J2405; J2704; J3010; J3370; J3490; J7050; J7060

== ENCOUNTER → 2020-06-25 | Outpatient (CLI) | payer MEDICARE, MEDICAID | LOC: OD 10:43 | PROVIDERS: ATTEND Radiology Radiation Oncology | DX: C61 Malignant neoplasm of prostate (principal) | CPT/HCPCS: 36415; 84153 ==